=== PATIENT | male | born 1995 | race Caucasian/White ===

== ENCOUNTER 2019-04-14 10:03 | Emergency (ER) | payer SELFPAY ==
--- NOTE | 2019-04-14 10:14 | Emergency Department Record ---
History of Present Illness - General Chief complaint: Extremity Problem Stated complaint: RIGHT MIDDLE FINGER INJURY Time Seen by Provider: 04/14/19 10:08 Source: Patient Mode of Arrival: Ambulatory Limitations: No limitations - History of Present Illness Initial comments: from work, left hand dominate. Moving a 200# patio block and got right middle finger caught between as setting down. Local pain with bleeding from the pad. Black to nail bed. No other injury. MD Complaint: Extremity pain Onset/Timin -: Minutes(s) Location: Right, Hand (middle finger) History of Same: No Radiation: None Severity scale (1-10): 7 Quality: Crushing, Sharp Consistency: Constant Improves with: Nothing Worsens with: Nothing Associated Symptoms: Denies other symptoms - Related Data Previous Rx's Medication Instructions Recorded Cephalexin [Keflex] 1,000 mg PO BID 5 Days #20 cap 04/14/19 Allergies Allergy/AdvReac Type Severity Reaction Status Date / Time No Known Drug Allergies Allergy Verified 04/14/19 10:14 Review of Systems Constitutional: Denies: Chills, Fever Eyes: Denies: Eye discharge ENT: Denies: Congestion Respiratory: Denies: Cough Cardiovascular: Denies: Chest pain Endocrine: Denies: Fatigue Gastrointestinal: Denies: Abdominal pain Musculoskeletal: Reports: As per HPI Skin: Reports: As per HPI Neurological: Denies: Headache Psychiatric: Denies: Anxiety Hematological/Lymphatic: Denies: Anemia Physical Exam - General General Appearance: Alert, Oriented x3, Cooperative, No acute distress - Head Head exam: Normal inspection - Eye Eye exam: Normal appearance - ENT ENT exam: Mucous membranes moist - Extremities Extremities exam: Other (no pain to right hand or proximal right middle finger at the MCP or PIP joint. Good ROM. ) Image of Hand: 1 - subungual hematoma 80% nail surface, nail intact. 2 - small injury to skin with visable subcut tissue, no FB seen. 1-2mm - Neurological Neurological exam: Alert, Normal gait, Oriented X3 - Psychiatric Psychiatric exam: Normal affect, Normal mood - Skin Skin exam: Normal color (finger injury as above. ) Disposition Disposition: Discharge Clinical Impression: Subungual hematoma of right middle finger, Laceration of right middle finger Disposition: Home, Self-Care Decision to Admit: Accidental Injury Condition: (1) Good Instructions: Subungual Hematoma (ED) Additional Instructions: Keep finger clean and dry for 3 days. Ice and elevate for pain. Take Keflex 500mg two pills twice a day for 5 days. Return as needed. Prescriptions: Cephalexin [Keflex] 1,000 mg PO BID 5 Days #20 cap Forms: Patient Portal Access Quality - Quality Measures Quality Measures: N/A - Blood Pressure Screening Does Patient Have Any of the Following: No Blood Pressure Classification: Hypertensive Reading Systolic Measurement: 134 Diastolic Measurement: 93 Screening for High Blood Pressure: < Pre-Hypertensive BP, F/U Documented > [G8950] Pre-Hypertensive Follow-up Interventions: Follow-up with rescreen every year.
--- NOTE | 2019-04-17 09:58 | RADIOLOGY REPORT ---
EXAM: RIGHT LONG FINGER HISTORY: INJURY WITH PAIN NEAR DISTAL INTERPHALANGEAL JOINT. TECHNIQUE: Three views of the right long finger were obtained. Comparison: None. FINDINGS: Distal long finger soft tissue swelling. Question subtle nondisplaced fracture involving the peripheral radial aspect of the distal phalanx tuft, otherwise no definite fracture, no dislocation. No radiopaque foreign bodies. IMPRESSION: QUESTIONABLE SUBTLE NONDISPLACED FRACTURE OF THE LONG FINGER DISTAL PHALANX TUFT, OTHERWISE NO ACUTE OSSEOUS FINDINGS. THERE IS DISTAL FINGER SOFT TISSUE SWELLING. JOB NUMBER: [id number]
== END 2019-04-14 11:29 | disposition home or self-care (01) ==
LOC: ER 10:03
DX: S61.302A Unspecified open wound of right middle finger with damage to nail, initial encounter (principal); W45.8XXA Other foreign body or object entering through skin, initial encounter; W20.8XXA Other cause of strike by thrown, projected or falling object, initial encounter; Y93.89 Activity, other specified; Y92.69 Other specified industrial and construction area as the place of occurrence of the external cause; F17.220 Nicotine dependence, chewing tobacco, uncomplicated
CPT/HCPCS: 11740; 73140; 99283